=== PATIENT | male | born 2005 | race Caucasian/White ===

== ENCOUNTER 2025-07-30 09:09 | Emergency (ER) | payer OTHER, SELFPAY ==
[2025-07-30 09:12] VITALS: BP 143/95
--- NOTE | 2025-07-30 10:33 | ED.GENMED ---
History of Present Illness
General
Chief Complaint: Abdominal Symptoms
Source: patient
Exam Limitations: none
Time Seen by Provider: 07/30/25 10:31
Nursing documentation reviewed up to this point in time: agreed with
History of Present Illness
History of Present Illness:
20 yo male with h/o ADHD, anxiety, depression, reports the onset of persistent vomiting starting around 3 or 4 AM today, with approximately ten episodes in the last five hours. The last episode occurred 20 minutes ago. He feels nausea presently and
has experienced some abdominal discomfort attributed to repeated vomiting. The patient describes the stool as somewhere between soft and watery, denies blood in the stool. Ate Thanksgiving dinner last night, no one else got sick. No recent travel.
Past History
Past History
ED Past Medical History: Psychiatric (Depression/anxiety)
ED Past Surgical History: Other (Moss teeth)
Social History
Tobacco: Smoker
Alcohol: Occasional
Drug: None
Personal: Single
Living: with family
Employment: Employed
Review of Systems
Review of Systems
Allergies reviewed?: Yes
All Other Systems: ROS reviewed and negative except as documented in HPI and ROS
Constitutional: Denies fever
Respiratory: Denies trouble breathing
Cardiac: Denies chest pain
ABD/GI: Reports abdominal pain (Mild from vomiting), nausea, vomiting and diarrhea; Denies bloody stools or black stools
Musculoskeletal: Reports no symptoms
Skin: Reports no symptoms
Neurological: Reports no symptoms
Phy Exam
Physical Exam
Physical Exam:
GENERAL: No acute distress. A&Ox3.
CONSTITUTIONAL: Afebrile.
EYES: clear, conjunctivae normal
ENMT: moist mucus membranes, Pharynx nl
RESPIRATORY: Regular respirations, nonlabored, lungs clear.
CARDIOVASCULAR: Regular rate and rhythm, no murmurs, no rubs.
GI: Soft, nontender, normal BS
MUSCULOSKELETAL: Moves with ease. Well perfused.
SKIN: Warm, dry, pink
PSYCH: Normal mood and affect. Well kept, interactive and appropriate
NEUROLOGIC: Awake, alert and oriented. No focal neurological deficits
Course
Orders/Labs/Results
Orders:
Orders
07/30/25 10:28
IV Insert/Care/Rem.- Treatment PRN
Test Result ONCE
07/30/25 10:40
0.9% Sodium Chloride 1000 ml [Nss] 1,000 ml IV BOLUS
07/30/25 10:51
Complete Blood Count/With Diff Urgent
Comprehensive Metabolic Panel Urgent
Lipase Urgent
Abnormal Lab Results
07/30/25
10:51
WBC 16.1 H 10^3/uL
(4.8-10.8)
MCH 32.2 H pg
(27.0-31.0)
Abs Immat Gran (auto) 0.1 H 10^3/uL
(0-0.05)
Absolute Neuts (auto) 14.4 H 10^3/uL
(1.4-6.5)
Absolute Lymphs (auto) 1.0 L 10^3/uL
(1.2-3.4)
Immature Gran % 0.9 H %
(0-0.5)
Neutrophils % 89.5 H %
(42.2-75.2)
Lymphocytes % 6.2 L %
(20.5-51.1)
Glucose 118 H mg/dl
(70-99)
Calcium 10.3 H mg/dl
(8.4-10.2)
Albumin 5.2 H g/dl
(3.5-5.0)
07/30/25 10:51
07/30/25 10:51
Vital Signs
Initial and Last Documented VS:
Initial Vital Signs
Temp Pulse Resp BP Pulse Ox
97.5 F 101 20 143/95 100
07/30/25 09:12 07/30/25 09:12 07/30/25 09:12 07/30/25 09:12 07/30/25 09:12
Last Documented Vital Signs
Temp Pulse Resp BP Pulse Ox
97.5 F 84 16 112/71 98
07/30/25 09:12 07/30/25 13:00 07/30/25 13:00 07/30/25 13:00 07/30/25 13:00
MDM/Problems Addressed
Differential Diagnosis Includes:
gastroenteritis, food poisoning,
MDM/Problems Addressed:
20 yo male with h/o ADHD, anxiety, depression, reports the onset of persistent vomiting starting around 3 or 4 AM today, with approximately ten episodes in the last five hours. The last episode occurred 20 minutes ago. He feels nausea presently and
has experienced some abdominal discomfort attributed to repeated vomiting. The patient describes the stool as somewhere between soft and watery, denies blood in the stool. Ate Thanksgiving dinner last night, no one else got sick. No recent travel.
He just started on hydroxyzine 15 to 30 mg a week ago.
Pt pleasant, NAD
Abdomen benign
12:45 PM:
CBC: WBC 16.1 most likely reactive after vomiting
CMP with no clinically significant abnormality
After IV fluids, IV Zofran feeling much better and wants to go home. Due to his being on StemCytee meds, no Zofran rx provided
*Pulse Oximetry
SaO2: 100
Oxygen Mode of Delivery: Room air
Patient hypoxic: no
*Critical Care Note
Total Time (30-74mins, 75-104mins- exclusive of procedures): Not Applicable
ED Attending Note
-
Portions of this chart may have been created with voice recognition software.� Occasional wrong word or��sound alike� substitutions may have occurred due to the inherent limitations of voice recognition software.
Discharge Plan
Departure
Patient Disposition: Home (Routine Discharge)
Date of Disposition: 07/30/25
Time of Disposition: 12:50
Patient with high blood pressure during this ER visit?: No
Condition: Good
Discharge Problem:
Nausea & vomiting, Gastritis
Instructions: Nausea and Vomiting, Adult (DC), Gastritis (DC)
Prescriptions:
No Action
fluoxetine 20 MG capsule
20 mg PO DAILY
bupropion HCl 150 MG tablet extended release 24 hr
150 mg PO DAILY
Referrals:
NONE,* [Family Provider, Internal Medicine]
Interventions
Interventions:
*Risk Screen - Suicide Last Done: 07/30/25 10:50
*General Assessment Last Done: 07/30/25 10:50
*Neglect/Abuse Screening Last Done: 07/30/25 10:50
*ED- Fall Risk Assessment Last Done: 07/30/25 10:50
*ED COVID-19 Vaccine History Last Done: 07/30/25 10:50
*ED Influenza Vaccine History Last Done: 07/30/25 10:50
*Nursing Disposition Last Done: 07/30/25 13:34
JG-Pfzpxz-Hufidxmiah Assessment Last Done: 07/30/25 10:50
Discharge Date and Time
Discharge Date/Time: 07/30/25 13:35
Print Language: DIVEHI
[2025-07-30 10:50] VITALS: BP 122/82
[2025-07-30] MEDS: NSS 1000 IV (10:53)
[2025-07-30 11:01] LABS: Hematocrit 45.3 % (39.0-52.0); Hemoglobin 16.3 g/dL (13.0-18.0); Mean Corp Hgb Conc. 36.0 g/dL (33.0-37.0); Mean Corpuscular Volume 89.5 fL (80.0-94.0); Nucleated Red Blood Cells % 0 % (-); Platelet Count 248 10^3/uL (130-400); Red Cell Dist. Width 12.3 % (11.5-14.5)
[2025-07-30 11:15] LABS: ALT (SGPT) 23 U/L (0-50); AST (SGOT) 31 U/L (17-59); Albumin 5.2 g/dl (3.5-5.0); Alkaline Phosphatase 70 U/L (38-126); Blood Urea Nitrogen 15 mg/dl (9-20); Calcium 10.3 mg/dl (8.4-10.2); Carbon Dioxide 29 mmol/L (22-30); Chloride 101 mmol/L (98-107); Glucose 118 mg/dl (70-99); Lipase 42 U/L (23-300); Potassium 4.1 mmol/L (3.5-5.1); Sodium 138 mmol/L (135-145); Total Protein 8.1 g/dl (6.3-8.2); eGFR > 60.00
[2025-07-30 11:21] VITALS: BMI 20.4
[2025-07-30 12:00] VITALS: BP 125/65
[2025-07-30 13:00] VITALS: BP 112/71
== END 2025-07-30 13:35 | disposition home or self-care (01) ==
LOC: EMR 09:09
PROVIDERS: EMERGENCY PHYSICIAN Emergency Medicine
DX: K29.70 Gastritis, unspecified, without bleeding (principal); F41.9 Anxiety disorder, unspecified; F32.A Depression, unspecified; F90.9 Attention-deficit hyperactivity disorder, unspecified type; F17.200 Nicotine dependence, unspecified, uncomplicated
CPT/HCPCS: 99284; 96360; 80053; 83690; 85025